=== PATIENT | female | born 1955 | race Caucasian/White ===

== ENCOUNTER → 2021-12-20 09:09 | Outpatient (CLI) | payer MEDICARE, SELFPAY ==
[2021-12-20 19:37] LABS: Cholesterol 222 mg/dL (140-199); Glucose 79 mg/dL (80-110); HDL Cholesterol 63 mg/dL (40-60); LDL Cholesterol Calculated 144 mg/dL (<100); Triglycerides 74 mg/dL (35-150)
[2021-12-21 17:01] LABS: Hep C Virus Ab w/Reflex Quant NEGATIVE s/c (NEGATIVE)
== END ==
PROVIDERS: PCP Family Medicine; Visit Provider Family Medicine
DX: Z00.00 Encounter for general adult medical examination without abnormal findings (principal); Z11.59 Encounter for screening for other viral diseases; Z12.11 Encounter for screening for malignant neoplasm of colon; Z12.31 Encounter for screening mammogram for malignant neoplasm of breast; Z13.1 Encounter for screening for diabetes mellitus; Z13.220 Encounter for screening for lipoid disorders; Z71.85 Encounter for immunization safety counseling; Z78.0 Asymptomatic menopausal state
CPT/HCPCS: 80061; 82947; 86803